=== PATIENT | male | born 1980 | race Caucasian/White ===

== ENCOUNTER 2020-08-19 07:17 | Day surgery (SDC) | payer BC ==
[2020-08-12 11:11] LABS: BASOPHILS # (AUTO) 0.1 X10'3 (0-0.2); EOSINOPHILS # (AUTO) 0.3 X10'3 (0-0.9); EOSINOPHILS % (AUTO) 5.9 % (0-6); LYMPHOCYTES # (AUTO) 1.6 X10'3 (1.1-4.8); LYMPHOCYTES % (AUTO) 29.3 % (21-51); MEAN CORPUSCULAR HEMOGLOBIN 29.4 PG (27.0-31.0); MEAN CORPUSCULAR HGB CONC 33.5 g/dL (33.0-36.5); MEAN CORPUSCULAR VOLUME 87.9 FL (78-98); MEAN PLATELET VOLUME 9.9 FL (7.4-10.4); MONOCYTES # (AUTO) 0.5 X10'3 (0-0.9); MONOCYTES % (AUTO) 8.8 % (2-12); NEUTROPHILS # (AUTO) 3.1 X10'3 (1.8-7.7); PRE OP HEMATOCRIT 47.3 % (42.0-52.0); PRE OP HEMOGLOBIN 15.8 g/dL (14.0-17.9); PRE OP PLATELET COUNT 214 X10'3 (140-440); RED BLOOD COUNT 5.38 X10'6 (4.70-6.10); RED CELL DISTRIBUTION WIDTH 13.2 % (11.5-14.5)
[2020-08-12 11:17] LABS: ALBUMIN 4.2 G/DL (3.4-5.0); ALBUMIN/GLOBULIN RATIO 1.1 (1.1-1.5); ALKALINE PHOSPHATASE 104 IU/L (46-116); BLOOD UREA NITROGEN 21 MG/DL (7-18); BUN/CREATININE RATIO 14.7 (5.4-32.0); CALCIUM 9.1 MG/DL (8.5-10.1); CHLORIDE 104 MMOL/L (99-107); CREATININE 1.43 MG/DL (0.60-1.10); PRE OP ALT 66 U/L (30-65); PRE OP ANION GAP 9 (8-16); PRE OP AST 27 U/L (10-37); PRE OP BILIRUB, TOTAL 0.4 MG/DL (0.0-1.0); PRE OP GLUCOSE 101 MG/DL (70-104); PRE OP SODIUM 139 MMOL/L (135-145); TOTAL CARBON DIOXIDE 25.9 MMOL/L (24-32); TOTAL PROTEIN 7.9 G/DL (6.4-8.2); eGFR 55 ML/MIN
[2020-08-19] VITALS (17 sets, daily range): BP systolic 109–137; BP diastolic 65–92
[~2020-08-19] VITALS: Ht 188 cm; Wt 119.4 kg
[~2020-08-19 07:17] MED LIST: LEVO100T PO; cefazolin/dext.iso 2gm/100ml IV ONE; famotidine 20mg tablet PO ONE; ringers solution, lacted 1,000 ML IV SCH
[2020-08-19] MEDS ORDERED: BUPIVACAINE liposomal/PF 13.3 MG/ML vial IM ONE (09:07)
[2020-08-19] MEDS ORDERED: LIDOcaine 1% 30ml preserv. free vial ONE (09:07)
[2020-08-19] MEDS ORDERED: BUPIVAcaine/PF 2.5mg/ml (0.25%) 10ml vial ONE (09:07)
[2020-08-19] MEDS ORDERED: BUPIVAcaine/PF 2.5 mg/ml (0.25%) 30ml vial ONE (09:07)
[2020-08-19] MEDS ORDERED: sevoflurane 250ml liquid IH ONE (09:17)
[2020-08-19] MEDS ORDERED: acetaminophen 1,000mg/100ml IV 100 ML IV PRN (09:20)
[2020-08-19] MEDS ORDERED: meperidine/PF 25mg/ml syringe IV PRN ×3 (09:20)
[2020-08-19] MEDS ORDERED: morphine 2 MG/ML inj. syringe IV PRN (09:20)
[2020-08-19] MEDS ORDERED: ondansetron/PF 4mg/2ml inj IV PRN (09:20)
[2020-08-19] MEDS ORDERED: labetalol 20mg/4ml (5mg/ml) syringe IV PRN (09:20)
[2020-08-19] MEDS ORDERED: hydrALAZINE 20mg/ml inj. IV PRN (09:20)
[2020-08-19] MEDS ORDERED: proCHLORperazine 10 MG/2 ml inj IV PRN (09:20)
[2020-08-19] MEDS ORDERED: morphine 4 MG/ML inj SYRINge IV PRN (09:20)
[2020-08-19] MEDS ORDERED: ringers solution, lacted 1,000 ML IV SCH (09:20)
[2020-08-19] MEDS ORDERED: fentaNYL /PF 50mcg/ml 5ml ampule ONE (09:23)
[2020-08-19] MEDS ORDERED: midazolam 1 mg/ML 2ml injection ONE (09:23)
[2020-08-19] MEDS ORDERED: dexamethasone sod phosphate 4mg/ml inj. ONE (10:38)
[2020-08-19] MEDS ORDERED: rocuronium 10mg/ml inj IV ONE (10:38)
[2020-08-19] MEDS ORDERED: LIDOcaine 2% (20mg/ml) 5ml vial ONE (10:38)
[2020-08-19] MEDS ORDERED: ondansetron/PF 4mg/2ml inj ONE (10:38)
[2020-08-19] MEDS ORDERED: propofol inj 20 ML IV ONE ×2 (10:38→11:22)
[2020-08-19] MEDS ORDERED: glycopyrrolate 0.2mg/ml inj ONE (11:12)
[2020-08-19] MEDS ORDERED: neostigmine methylsulfate 1 MG/ML 10ml vial ONE (11:12)
[2020-08-19] MEDS ORDERED: oxyCODONE/APAP 5-325mg tablet PO PRN ×2 (11:35)
--- NOTE | 2020-08-19 11:35 | NUR ---
Received from OR via [facility], accompanied by Anesthesiologist CHILO and report given by Anesthesiolgist. PT DROWSY, OXYGENATING WELL ON 10 LPM O2 VIA MASK, NO RESP DISTRESS NOTED. PT DENIES NAUSEA OR PAIN AT THIS TIME. 4 SMALL DSGS/BANDAIDS TO ABD, CDI. SMALL INCISION TO SCROTUM CLOSED WITH DERMABOND. SMALL INCISION UNDERNEATH LEFT SIDE OF SCROTUM, DERMABONDED CLOSED. NO REDNESS OR SWELLING. VSS.
--- NOTE | 2020-08-19 14:25 | NUR ---
PT WAS SLOW TO AWAKEN AFTER ANESTHESIA. PAIN LEVEL TRENDING DOWN AFTER MEDS GIVEN IN PACU. VSS. TOLERATING PO FLUIDS WELL. DC INSTRUCTIONS EXPLAINED TO PT AND HIS , THEY VERBALIZED UNDERSTANDING. PT DCD IN STABLE CONDITION, TAKEN TO CAR VIA WC.
== END 2020-08-19 14:25 | disposition home or self-care (01) ==
LOC: PAS 07:17
PROVIDERS: ATTEND Surgery
DX: Z30.2 Encounter for sterilization (principal); K42.9 Umbilical hernia without obstruction or gangrene; D17.24 Benign lipomatous neoplasm of skin and subcutaneous tissue of left leg; E03.9 Hypothyroidism, unspecified; Z20.822 Contact with and (suspected) exposure to COVID-19; Z79.899 Other long term (current) drug therapy; Z94.7 Corneal transplant status
CPT/HCPCS: 27337; 36415; 49652; 55250; 64488; 80053; 82948; 85025; 93005; C1781; C9290; J1100; J2001; J2175; J2250; J2405; J2704; J2710; J3010; J3490; J7120; S2900; U0003; U0005; A4215; A4618; A7000